=== PATIENT | male | born 1955 | race American Indian/Alaskan Native ===

== ENCOUNTER 2017-08-12 15:19 | Emergency (ER) | payer OTHER, SELFPAY ==
[2017-08-12 15:39] VITALS: BMI 27.0
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
[2017-08-12] MEDS ORDERED: Ciprofloxacin 0.3% OPTH SOLN OD STA (15:52)
[2017-08-12 15:54] VITALS: BP 155/81; PULSE 72; RESP 16; TEMP 98.3; O2SAT 98
== END 2017-08-12 16:07 | disposition home or self-care (01) ==
LOC: ED 15:19
DX: S05.01XA Injury of conjunctiva and corneal abrasion without foreign body, right eye, initial encounter (principal); X58.XXXA Exposure to other specified factors, initial encounter; H10.9 Unspecified conjunctivitis

== ENCOUNTER 2018-12-20 10:19 | Emergency (ER) | payer OTHER ==
[2018-12-20 10:23] VITALS: BMI 31.1
--- NOTE | 2018-12-20 10:43 | ED PDOC ---
Arrival/HPI - General Chief Complaint: Headache Time Seen by Provider: 12/20/18 10:30 Historian: Patient - History of Present Illness Narrative History of Present Illness (Text): 12/20/18 10:41 A 63 year old male, whose past medical history includes hypertension, presents to the emergency department with a complaint of right sided headache and chest pain. Patient reports that the pain started yesterday. He also complains of a mild non- productive cough. The [facility] tre[facility] that he ran out of his blood pressure medication 1 month ago. He [place] that [place] and returned 1.5 weeks ago. The patient states that he does not have a PMD here and is not aware of what medications he takes. Patient is a non- smoker, non- drinker. He denies fevers, chills, dizziness, weakness, numbness, tingling, shortness of breath, dyspnea on exertion, abdominal pain, nausea, vomiting, diarrhea, back pain, neck pain, urinary/bowel changes, or any other complaint. Time/Duration: Other (Yesterday) Symptom Onset: Gradual Symptom Course: Unchanged Activities at Onset: Rest, Light Context: Home Associated Symptoms (Text): 12/20/18 11:34 Right sided headache and chest pain since yesterday. History of hypertension and ran out of his medications one month ago. He appears comfortable and in no distress. Past Medical History - Provider Review Nursing Documentation Reviewed: Yes - Infectious Disease Hx of Infectious Diseases: None - Tetanus Immunization Tetanus Immunization: Unknown - Cardiac Hx Hypertension: Yes (run out of meds. last week) - Pulmonary Hx Respiratory Disorders: No - Neurological Hx Neurological Disorder: No - HEENT Hx HEENT Disorder: No (PRESCRIPTION GLASSES) - Renal Hx Renal Disorder: No - Endocrine/Metabolic Hx Endocrine Disorders: No - Hematological/Oncological Hx Blood Disorders: No - Integumentary Hx Dermatological Disorder: Yes (CHRONIC RIGHT LEG VENOUS INSUFFICIENCY) - Musculoskeletal/Rheumatological Hx Musculoskeletal Disorders: Yes - Gastrointestinal Hx Gastrointestinal Disorders: No - Genitourinary/Gynecological Hx Genitourinary Disorders: Yes (URINARY FREQUENCY) - Psychiatric Hx Psychophysiologic Disorder: No Hx Substance Use: No - Anesthesia Hx Anesthesia: Yes Hx Anesthesia Reactions: No Hx Malignant Hyperthermia: No - Suicidal Assessment Feels Threatened In Home Enviroment: No Family/Social History - Physician Review Nursing Documentation Reviewed: Yes Family/Social History: No Known Family HX Smoking Status: Never Smoked Hx Alcohol Use: No Hx Substance Use: No Hx Substance Use Treatment: No Allergies/Home Meds Allergies/Adverse Reactions: Allergies Penicillins Allergy (Verified 12/20/18 10:52) RASH Home Medications: Home Meds Medication Instructions Recorded Confirmed Aspirin [Dickens Aspirin] 81 mg PO DAILY 12/20/18 12/20/18 amLODIPine [Norvasc] 10 mg PO DAILY 12/20/18 12/20/18 Review of Systems - Physician Review All systems were reviewed & negative as marked: Yes - Review of Systems Constitutional: absent: Fevers Respiratory: Cough. absent: SOB Cardiovascular: Chest Pain. absent: DEE Gastrointestinal: absent: Abdominal Pain, Stool Changes, Diarrhea, Nausea, Vomiting Genitourinary Male: absent: Urinary Output Changes Musculoskeletal: absent: Back Pain, Neck Pain Neurological: Headache. absent: Dizziness Physical Exam Vital Signs Reviewed: Yes Vital Signs Temp Pulse Resp BP Pulse Ox 12/20/18 10:19 98.1 F 74 18 182/108 H 99 Temperature: Afebrile Blood Pressure: Hypertensive Pulse: Regular Respiratory Rate: Normal Appearance: Positive for: Well-Appearing, Non-Toxic, Comfortable Pain Distress: None Mental Status: Positive for: Alert and Oriented X 3 - Systems Exam Head: Present: Atraumatic, Normocephalic Pupils: Present: PERRL Extroacular Muscles: Present: EOMI Conjunctiva: Present: Normal Ears: Present: NORMAL TM, Normal Canal. No: Erythema, TM Bulging Mouth: Present: Moist Mucous Membranes Pharnyx: No: ERYTHEMA, EXUDATE, TONSILS ENLARGED Neck: Present: Normal Range of Motion Respiratory/Chest: Present: Clear to Auscultation, Good Air Exchange, Decreased Breath Sounds. No: Respiratory Distress, Accessory Muscle Use, Tender to Palpation Cardiovascular: Present: Regular Rate and Rhythm, Normal S1, S2. No: Murmurs Abdomen: No: Tenderness, Distention, Peritoneal Signs Back: Present: Normal Inspection Upper Extremity: Present: Normal Inspection. No: Cyanosis, Edema Lower Extremity: Present: Edema (chronic +1 trace edema bilaterally.) Neurological: Present: GCS=15, CN II-XII Intact, Speech Normal, Motor Func Grossly Intact Skin: Present: Warm, Dry, Normal Color. No: Rashes Psychiatric: Present: Alert, Oriented x 3, Normal Insight, Normal Concentration Medical Decision Making ED Course and Treatment: 12/20/18 10:45 Impression: A 63 year old male presents to the emergency department with a complaint of right sided headache, chest pain, and non- productive cough. Plan: -- Head CT -- EKG -- Chest X-ray -- Urinalysis -- Labs -- Aspirin, Catapress, and Tylenol -- Reassess and disposition Progress Notes: 12/20/18 11:34 EKG shows normal sinus rhythm rate approximately 70 with a primary AV block and a nonspecific intraventricular conduction block and nonspecific T-wave changes PROCEDURE: CT HEAD WITHOUT CONTRAST. Dictator : Asad Tovar MD Report Date : 12/20/2018 11:22:15 IMPRESSION: No acute intracranial findings 12/20/18 12:20 Headache and chest pain have markedly improved as have his blood pressure. Chest X-ray Dictator : Asad Tovar MD Report Date : 12/20/2018 12:39:23 IMPRESSION: No active disease. - Lab Interpretations I have reviewed the lab results: Yes - RAD Interpretation Radiology Orders: 12/20/18 10:39 HEAD W/O CONTRAST [CT] Stat CHEST PORTABLE [RAD] Stat CT scan of the head as read by the radiologist shows no acute findings. X-ray chest one view shows no infiltrate effusion or cardiomegaly. Inletter: Radiologist - EKG Interpretation Interpreted by ED Physician: Yes Type: 12 lead EKG - Medication Orders Current Medication Orders: Acetaminophen (Tylenol 325mg Tab) 650 mg PO STAT STA Stop: 12/20/18 10:40 Clonidine HCl (Catapres) 0.2 mg PO ONCE ONE Stop: 12/20/18 10:41 - Scribe Statement The provider has reviewed the documentation as recorded by the Rashi Lopez Provider Scribe Attestation: All medical record entries made by the Scribe were at my direction and personally dictated by me. I have reviewed the chart and agree that the record accurately reflects my personal performance of the history, physical exam, medical decision making, and the department course for this patient. I have also personally directed, reviewed, and agree with the discharge instructions and disposition. Disposition/Present on Arrival - Present on Arrival Any Indicators Present on Arrival: No History of DVT/PE: No History of Uncontrolled Diabetes: No Urinary Catheter: No History of Decub. Ulcer: No History Surgical Site Infection Following: None - Disposition Have Diagnosis and Disposition been Completed?: Yes Diagnosis: Hypertension, Headache, Chest pain Disposition: HOME/ ROUTINE Disposition Time: 12:22 Patient Plan: Discharge Patient Problems: Current Active Problems Problem Status Onset Chest pain Acute Headache Acute Hypertension Acute Condition: IMPROVED Discharge Instructions (ExitCare): High Blood Pressure in Adults, Chest Pain, Headache, Adult (DC), Chest Pain (ED) Prescriptions: RX: amLODIPine [Norvasc] 10 mg PO DAILY #10 tab Referrals: [facility] [place] [Outside] - Follow up with primary [facility] [Outside] - Follow up with primary Forms: [employer] (Slovenian)
[2018-12-20 11:08] LABS: BASO # 0.05 K/mm3 (0.0-2.0); BASO % 1.1 % (0.0-3.0); EOS # 0.2 (0.0-0.7); EOS % 3.5 % (1.5-5.0); HEMOGLOBIN 13.5 g/dL (14.0-18.0); LYMPH # 1.2 (1.2-3.4); LYMPH % 25.4 % (22.0-35.0); MEAN CELL VOLUME 84.9 fl (80.0-105.0); MEAN CORPUSCULAR HEMOGLOBIN 27.9 pg (25.0-35.0); MEAN CORPUSCULAR HGB CONC 32.8 g/dl (31.0-37.0); MEAN PLATELET VOLUME 10.7 fl (7.0-11.0); MONO # 0.5 (0.1-0.6); MONO % 10.4 % (1.0-6.0); RBC 4.84 10^6/uL (3.5-6.1); RED CELL DISTRIBUTION WIDTH 14.2 % (11.5-14.5); WHITE BLOOD COUNT 4.6 10^3/uL (4.5-11.0)
[2018-12-20 11:19] LABS: ALB/GLOB RATIO 1.1 (1.1-1.8); ALBUMIN 4.7 g/dL (3.0-4.8); ALT/SGPT 12 U/L (7-56); AST/SGOT 28 U/L (17-59); BLOOD UREA NITROGEN 9 mg/dL (7-21); CALCIUM 9.4 mg/dL (8.4-10.5); GFR NON-AFRICAN AMERICAN > 60
--- NOTE | 2018-12-20 11:25 | CT ---
Date of service: 12/20/2018 PROCEDURE: CT HEAD WITHOUT CONTRAST. HISTORY: MARRUFO COMPARISON: None available. TECHNIQUE: Axial computed tomography images were obtained through the head/brain without intravenous contrast. Radiation dose: Total exam DLP = 996.63 mGy-cm. This CT exam was performed using one or more of the following dose reduction techniques: Automated exposure control, adjustment of the mA and/or kV according to patient size, and/or use of iterative reconstruction technique. FINDINGS: HEMORRHAGE: No intracranial hemorrhage. BRAIN: No mass effect or edema. No atrophy or chronic microvascular ischemic changes. VENTRICLES: Unremarkable. No hydrocephalus. CALVARIUM: Unremarkable. PARANASAL SINUSES: Unremarkable as visualized. No significant inflammatory changes. MASTOID AIR CELLS: Unremarkable as visualized. No inflammatory changes. OTHER FINDINGS: None. IMPRESSION: No acute intracranial findings
[2018-12-20 11:30] LABS: TROPONIN I < 0.01 ng/mL
[2018-12-20 12:11] LABS: PH,URINE 6.5 (4.7-8.0); URINE BILIRUBIN NEGATIVE (NEGATIVE); URINE BLOOD NEGATIVE (NEGATIVE); URINE GLUCOSE (UA) NEGATIVE (NEGATIVE); URINE LEUKOCYTE ESTERASE NEGATIVE Leu/uL (NEGATIVE); URINE PROTEIN NEGATIVE mg/dL (<30 mg/dL); URINE UROBILINOGEN 0.2 E.U./dL (<1 E.U./dL)
[2018-12-20 12:12] LABS: URINE APPEARANCE CLEAR (CLEAR); URINE COLOR LIGHT YELLOW (YELLOW)
--- NOTE | 2018-12-20 12:42 | RAD ---
Date of service: 12/20/2018 HISTORY: cp COMPARISON: 08/15/2013 FINDINGS: LUNGS: No active pulmonary disease. PLEURA: No significant pleural effusion identified, no pneumothorax apparent. CARDIOVASCULAR: No aortic atherosclerotic calcification present. Normal cardiac size. No pulmonary vascular congestion. OSSEOUS STRUCTURES: No significant abnormalities. VISUALIZED UPPER ABDOMEN: Normal. OTHER FINDINGS: None. IMPRESSION: No active disease.
[2018-12-20 12:44] VITALS: BP 132/78; PULSE 65; RESP 16; TEMP 98; O2SAT 98
--- NOTE | 2018-12-20 23:05 | CARD ---
APPROVED REPORT Date of service: 12/20/2018 EKG Measurement Heart [id number] <Conclusion> Sinus rhythm with 1st degree AV block Possible Left atrial enlargement Left ventricular hypertrophy Nonspecific T wave abnormality Abnormal ECG
== END 2018-12-20 13:16 | disposition home or self-care (01) ==
LOC: ED 10:19
DX: R07.9 Chest pain, unspecified (principal); R51 Headache; I10 Essential (primary) hypertension